=== PATIENT | female | born 1995 | race Caucasian/White ===

== ENCOUNTER 2018-04-11 23:11 | Emergency (ER) | payer SELFPAY ==
--- NOTE | 2018-04-11 23:15 | C.PDOC ---
History Of Present Illness The patient presents to the ED for evaluation of tingling sensation to tongue and chest tightness which began prior to arrival. 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 Patient took Benadryl prior to arrival. She is speaking in complete sentences and denies rash, nausea, vomiting. Time Seen by Provider: 04/11/18 23:15 History Per: Patient History/Exam Limitations: no limitations Onset/Duration Of Symptoms: Hrs Current Symptoms Are (Timing): Still Present Context: Food Possible Cause: Food Associated Symptoms: denies: Skin Rash Home/EMS Treatment: None Recent travel outside of the [place]: No Additional History Per: Patient Past Medical History Reviewed: Historical Data, Nursing Documentation, Vital Signs Vital Signs: Last Vital Signs Temp 98 F 04/12/18 01:27 Pulse 88 04/12/18 01:27 Resp 20 04/12/18 01:27 BP 128/72 04/12/18 01:27 Pulse Ox 99 04/12/18 01:27 - Medical History PMH: No Chronic Diseases Surgical History: No Surg Hx Family History: States: No Known Family Hx - Social History Hx Tobacco Use: No Hx Alcohol Use: No Hx Substance Use: No - Immunization History Hx Tetanus Toxoid Vaccination: No Hx Influenza Vaccination: No Hx Pneumococcal Vaccination: No Review Of Systems Constitutional: Negative for: Fever, Chills Cardiovascular: Positive for: Other (chest tightness ). Negative for: Chest Pain, Palpitations Respiratory: Negative for: Cough, Shortness of Breath Gastrointestinal: Negative for: Nausea, Vomiting, Abdominal Pain Skin: Negative for: Rash, Lesions, Jaundice, Bruising Neurological: Negative for: Weakness, Numbness Physical Exam - Physical Exam Appears: Non-toxic, No Acute Distress Skin: Warm, Dry Head: Normacephalic Eye(s): bilateral: Normal Inspection Oral Mucosa: Moist Tongue: No Swelling Lips: No Swelling Throat: No Erythema, No Exudate, No Drooling, Other (clear oropharynx ) Neck: Supple Chest: Symmetrical, No Deformity, No Tenderness Cardiovascular: Rhythm Regular, No Murmur Respiratory: No Rales, No Rhonchi, No Wheezing, Other (occasional dry cough noted. speaking in complete sentences ) Extremity: Normal ROM, Capillary Refill (less than 2 seconds ) Neurological/Psych: Oriented x3 ED Course And Treatment O2 Sat by Pulse Oximetry: 99 Pulse Ox Interpretation: Normal Progress Note: Benadryl IVP, Pepcid IVP, Solu-Medrol IVP, and IV Fluids given. Patient was re-evaluated after 15 minutes. She is resting comfortably and speaking in complete sentences. Critical Care Time - Critical Care Note Total Time (in mins): 30 Documented critical care: time excludes all time spent performing seperately billable procedures. Disposition Counseled Patient/Family Regarding: Studies Performed, Diagnosis, Need For Followup, Rx Given - Disposition Disposition: HOME/ ROUTINE Disposition Time: 23:15 Condition: FAIR Additional Instructions: Please return if symptoms recur. Please also use benadryl,pepcid and claritin Prescriptions: Epinephrine [Epipen] 0.3 mg IJ ONCE PRN #2 auto.injct PRN Reason: Anaphylaxis predniSONE [predniSONE Tab] 20 mg PO DAILY #5 tab Instructions: Food Allergy Forms: [facility] (Italian) - Clinical Impression Clinical Impression: Allergic reaction - Scribe Statement The provider has reviewed the documentation as recorded by the Scribe (Randee Pretty) Provider Attestation: All medical record entries made by the Scribe were at my direction and personally dictated by me. I have reviewed the chart and agree that the record accurately reflects my personal performance of the history, physical exam, medical decision making, and the department course for this patient. I have also personally directed, reviewed, and agree with the discharge instructions and disposition.
[2018-04-11 23:18] VITALS: BMI 18.5
[2018-04-11] MEDS ORDERED: DiphenhydrAMINE 50 mg/ml Inj IVP STA (23:18)
[2018-04-11] MEDS ORDERED: Sodium Chloride 0.9% 1,000 ML IV ONE (23:19)
[2018-04-11] MEDS ORDERED: Sodium Chloride 0.9% 1,000 ML ONE (23:24)
[2018-04-11 23:25] VITALS: RESP 20
[2018-04-11] MEDS ORDERED: DiphenhydrAMINE 50 mg/ml Inj ONE (23:25)
[2018-04-12 01:28] VITALS: BP 128/72; PULSE 88; TEMP 98; O2SAT 99
== END 2018-04-12 01:33 | disposition home or self-care (01) ==
LOC: C.ER 23:11
DX: T78.40XA Allergy, unspecified, initial encounter (principal)
CPT/HCPCS: 96361; 96374; 96375; 99285; J1200; J2930; J7030